=== PATIENT | male | born 1995 | race African-American/Black ===

== ENCOUNTER 2020-03-20 22:43 | Inpatient (IN) | payer OTHER ==
[~2020-03-20] VITALS: Ht 182.9 cm; Wt 68.5 kg
[~2020-03-20 22:43] MED LIST: CORTISPORIN OTI10 M2 OT; IBUPROFEN 600600 M1 PO; NOHOMEMEDICATIONS
[2020-03-20 22:56] VITALS: BP 115/46
[2020-03-20 23:08] LABS: CALCIUM 8.5 mg/dL (8.5-10.1); CREATININE 1.3 mg/dL (0.7-1.3)
[2020-03-20 23:15] LABS: ALBUMIN 4.1 g/dL (3.4-5.0); TOTAL BILIRUBIN 0.5 mg/dL (0.2-1.0); TOTAL PROTEIN 7.4 g/dL (6.4-8.2)
--- NOTE | 2020-03-20 23:24 | NUR ---
LEVEL 1 TRAUMA CALLED @ [id number]
[2020-03-20 23:28] LABS: ABSOLUTE NEUTROPHILS 3.7 thou/uL (1.4-8.2); BASOPHILS 0.3 % (0.0-2.0); EOSINOPHILS 1.6 % (0.0-3.0); HEMATOCRIT 37.1 % (42.0-52.0); HEMOGLOBIN 11.6 gm/dL (14.0-18.0); LYMPHOCYTES 36.2 % (24.0-44.0); MCH 23.3 pg (26.0-34.0); MCHC 31.3 g/dL (28.0-37.0); MCV 74.7 fL (80.0-100.0); MONOCYTES 9.6 % (1.0-8.0); PLATELET COUNT 253 thou/uL (150-400); POLYS 52.3 % (36.0-66.0); RBC 4.97 mil/uL (4.50-6.00); RDW 15.9 % (10.5-14.5); WBC 7.1 thou/uL (4.0-11.0)
[2020-03-21] VITALS (94 sets, daily range): BP systolic 85–132; BP diastolic 34–84
[2020-03-21 01:25] LABS: HEMATOCRIT 34.3 % (42.0-52.0); HEMOGLOBIN 10.3 gm/dL (14.0-18.0)
--- NOTE | 2020-03-21 02:02 | NUR ---
TALKED WITH MOTHER KATYA CRAWFORD, SHE IS DESIGNATED VISITOR, HAVE EXPLAINED TO HER SHE IS THE ONLY VISITOR PERMITTED TO SEE HIM AND SHE MUST BRING HER ID [phone].
[2020-03-21] MEDS ORDERED: NOHOMEMEDICATIONS (02:35)
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
--- NOTE | 2020-03-21 21:45 | NUR ---
ASSUMED CARE AT 1900. PT REPORTED PAIN 09/29; GAVE TWO NORCO FOR RELIEF. EDUCATED PT ABOUT CONSTIPATION WHILE ON NORCO. BP SOFT WHILE ASLEEP. CHEST TUBE PATENT.
[2020-03-22] VITALS (32 sets, daily range): BP systolic 89–119; BP diastolic 43–69
--- NOTE | 2020-03-22 17:06 | NUR ---
REPORT GIVEN TO NURSE FOR PT [id number]
[2020-03-23 04:43] VITALS: BP 93/50
--- NOTE | 2020-03-23 08:09 | NUR ---
PT AMBULATING TO BATHROOM INDEPENDENTLY AND IS TOLERATING WELL. LORTAB PROVIDING PAIN RELIEF. RESTING COMFORTABLY. NO NEEDS VOICED. CALL LIGHT WITHIN REACH. FREQUENT OBSERVATION.
[2020-03-23 08:30] VITALS: BP 106/67
--- NOTE | 2020-03-23 11:10 | NUR ---
ASSUMED CARE AT 0700. PT DENIES PAIN AND SOA. PT IS A &O X4. PT HAS STERI STRIPS. IV IS INTACT AND SHOWS NO SIGNS OF REDNESS OR SWELLING. FALL PRECAUTION. CALL LIGHT WITHIN REACH. WILL CONTINUE TO MONITOR
[2020-03-23 11:50] VITALS: BP 106/67
--- NOTE | 2020-03-23 14:00 | NUR ---
Case discussed with the care team and chart reviewed. Pt up ad emily in his room with possible dc home later today. Chest tube dc'd yesterday. Pt has supportive parent who has been at bedside. No health ins noted. [facility] referral initiated. [facility] clinic info provided on dc instructions. May need zohra application. Will remain available should dc needs arise.
[2020-03-23 14:34] VITALS: BP 106/67
== END 2020-03-23 18:09 | disposition home or self-care (01) | DRG 580 ==
LOC: ER 22:43 → EROBS 03-21 01:39 → ICU 03-21 01:39 → 4S 03-22 17:49
PROVIDERS: Emergency Medicine; Nurse Practitioner; ADMIT Surgery; ATTEND Surgery
PROC: 0JQF0ZZ Repair Left Upper Arm Subcutaneous Tissue and Fascia, Open Approach (ICD-10-PCS; principal; 2020-03-21)
PROC: 0W9B30Z Drainage of Left Pleural Cavity with Drainage Device, Percutaneous Approach (ICD-10-PCS; principal; 2020-03-21)
DX: S21.112A Laceration without foreign body of left front wall of thorax without penetration into thoracic cavity, initial encounter (principal); J93.9 Pneumothorax, unspecified; S41.012A Laceration without foreign body of left shoulder, initial encounter; W26.0XXA Contact with knife, initial encounter; Z79.899 Other long term (current) drug therapy; Y92.89 Other specified places as the place of occurrence of the external cause; Y93.89 Activity, other specified; Y99.8 Other external cause status; Z23 Encounter for immunization
CPT/HCPCS: 10078; 10102